=== PATIENT | female | born 1995 | race Caucasian/White ===

== ENCOUNTER 2017-09-13 11:44 | Emergency (ER) | payer MEDICAID ==
[~2017-09-13] VITALS: Ht 162.6 cm; Wt 80.7 kg
[2017-09-13 11:47] VITALS: BP 125/69; Ht 162.6 cm; Wt 80.7 kg
== END 2017-09-13 14:21 | disposition home or self-care (01) ==
LOC: ED 11:44
DX: O26.891 Other specified pregnancy related conditions, first trimester (principal); L02.214 Cutaneous abscess of groin; Z3A.08 8 weeks gestation of pregnancy
CPT/HCPCS: J2001

== ENCOUNTER 2018-05-12 15:09 | Emergency (ER) | payer OTHER ==
[~2018-05-12] VITALS: Ht 165.1 cm; Wt 78.9 kg
[2018-05-12 15:32] VITALS: Ht 165.1 cm; Wt 78.9 kg
[2018-05-12 18:04] VITALS: BP 103/62
== END 2018-05-12 17:45 | disposition home or self-care (01) ==
LOC: ED 15:09
DX: J06.9 Acute upper respiratory infection, unspecified (principal); J45.909 Unspecified asthma, uncomplicated

== ENCOUNTER 2018-10-09 13:01 | Emergency (ER) | payer OTHER ==
[~2018-10-09] VITALS: Ht 165.1 cm; Wt 81.2 kg
[2018-10-09 13:07] VITALS: BP 117/75; Ht 165.1 cm; Wt 81.2 kg
== END 2018-10-09 15:43 | disposition home or self-care (01) ==
LOC: ED 13:01
DX: J02.9 Acute pharyngitis, unspecified (principal)

== ENCOUNTER 2019-03-13 15:48 | Emergency (ER) | payer OTHER ==
[~2019-03-13] VITALS: Ht 165.1 cm; Wt 76.2 kg
[2019-03-13 15:52] VITALS: Ht 165.1 cm; Wt 76.2 kg
[2019-03-13 17:01] VITALS: BP 103/64
== END 2019-03-13 17:01 | disposition home or self-care (01) ==
LOC: ED 15:48
DX: M25.561 Pain in right knee (principal); M25.551 Pain in right hip
CPT/HCPCS: J1885